=== PATIENT | female | born 1935 | race Caucasian/White ===

== ENCOUNTER 2024-04-05 20:27 | Inpatient (IN) | payer MEDICARE ==
[2024-04-05] MEDS ORDERED: Acetaminophen 650 MG Suppository PR PRN (23:53)
[2024-04-06] MEDS: Sodium Chloride 0.9% 1,000 ML IV SCH ×2 (01:06→20:36)
[2024-04-06] MEDS: traZODone HCl 150 MG TAB PO SCH ×2 (01:06→20:35)
[2024-04-06] MEDS: ALPRAZolam 0.25 MG TAB PO SCH ×2 (01:06→20:36)
[2024-04-06] MEDS: Morphine 2 MG/ML VIAL SLOW IVP SCH (01:11)
[2024-04-06] MEDS ORDERED: Melatonin 3 MG TAB PO PRN (01:17)
[2024-04-06] MEDS ORDERED: Morphine 2 MG/ML VIAL SLOW IVP PRN (01:20)
[2024-04-06] MEDS ORDERED: Glucagon 1 MG/ML KIT IM PRN (01:44)
[2024-04-06] MEDS ORDERED: Dextrose 50% Abboject 50 ML SYRINGE SLOW IVP PRN (01:44)
[2024-04-06] MEDS ORDERED: Dextrose 5% in Water 1,000 ML IV PRN (01:44)
[2024-04-06] MEDS ORDERED: Ondansetron ODT 4 MG TAB PO PRN (01:48)
[2024-04-06] MEDS: Ondansetron PF 4 MG/2 ML Vial IVP PRN (01:59)
[2024-04-06] MEDS: Pantoprazole 40 MG VIAL IVP SCH ×2 (03:47→09:36)
[2024-04-06 05:40] LABS: #Basophils Less than 0.03 10x3/uL (0.0-0.2); #Eosinophils Less than 0.03 10x3/uL (0.0-0.7); %Basophils 0.1 % (0.0-1.0); %Eosinophils 0.1 % (0.0-10.0); %Lymphocytes 4.6 % (21.0-51.0); %Neutrophils 86.7 % (42.0-75.0); Hematocrit 28.6 % (36.0-47.0); Hemoglobin 9.9 g/dL (12.0-16.0); Mean Corpuscular HGB CONC 34.6 g/dL (32.0-36.0); Mean Corpuscular Hemoglobin 34.1 pg (27.0-31.0); Mean Corpuscular Volume 98.6 fL (78.0-98.0); Mean Platelet Volume 10.6 fL (7.4-10.4); Platelet Count 189 10x3/uL (130-400); RBC Distribution Width 13.3 % (11.5-14.5)
[2024-04-06 05:58] LABS: Anion Gap 13 mmol/L (10-20); BUN (Urea Nitrogen) 39 mg/dL (9.8-20.1); Calc. Creatinine Clearance 28 mL/min (70-130); Calcium 8.6 mg/dL (7.8-10.44); Carbon Dioxide 26 mmol/L (23-31); Chloride 99 mmol/L (98-107); Estimated GFR 50; Glucose 127 mg/dL (83-110); Magnesium 1.5 mg/dL (1.6-2.6); Potassium 3.6 mmol/L (3.5-5.1); Sodium 134 mmol/L (136-145)
[2024-04-06] MEDS: metroNIDAZOLE 500 MG in Premix 1 BAG IVPB SCH (06:13)
[2024-04-06] MEDS ORDERED: Famotidine 20 MG TAB PO SCH (09:00)
[2024-04-06] MEDS: Allopurinol 300 MG TAB PO SCH (09:34)
[2024-04-06] MEDS: Multivit, Therapeutic 1 TAB PO SCH (09:34)
[2024-04-06] MEDS: Atorvastatin Calcium 10 MG TAB PO SCH (09:36)
[2024-04-06] MEDS: Magnesium 2 GM/50 ML(in water) 2 GM in Premix 1 BAG IVPB SCH (09:36)
[2024-04-06] MEDS: Sertraline 25 MG TAB PO SCH (09:36)
[2024-04-06] MEDS: Aspirin 81 mg Enteric Coated Tablet PO SCH (09:36)
[2024-04-06] MEDS: Acetaminophen 325 MG TAB PO PRN (09:42)
[2024-04-06 19:45] LABS: #Basophils 0.03 10x3/uL (0.0-0.2); %Basophils 0.2 % (0.0-1.0); %Eosinophils 0.3 % (0.0-10.0); %Lymphocytes 8.4 % (21.0-51.0); %Neutrophils 81.7 % (42.0-75.0); Hematocrit 25.4 % (36.0-47.0); Hemoglobin 8.5 g/dL (12.0-16.0); Mean Corpuscular HGB CONC 33.5 g/dL (32.0-36.0); Mean Corpuscular Volume 101.6 fL (78.0-98.0); Mean Platelet Volume 9.7 fL (7.4-10.4); Platelet Count 150 10x3/uL (130-400); RBC Distribution Width 13.4 % (11.5-14.5)
[2024-04-06] MEDS: cefTRIAXone\\ROCEPHIN 1 GM in Sodium Chloride 0.9% 100 ML IVPB SCH (20:34)
[2024-04-06] MEDS: Melatonin 3 MG TAB PO SCH (20:35)
[2024-04-07] MEDS: hydrALAZINE 10 MG TAB PO PRN (04:11)
[2024-04-07 04:49] LABS: #Basophils Less than 0.03 10x3/uL (0.0-0.2); %Basophils 0.2 % (0.0-1.0); %Eosinophils 0.9 % (0.0-10.0); %Lymphocytes 9.1 % (21.0-51.0); %Monocytes 9.6 % (0.0-10.0); %Neutrophils 79.4 % (42.0-75.0); Mean Corpuscular HGB CONC 33.3 g/dL (32.0-36.0); Mean Corpuscular Hemoglobin 33.8 pg (27.0-31.0); Mean Corpuscular Volume 101.5 fL (78.0-98.0); Mean Platelet Volume 10.6 fL (7.4-10.4); Platelet Count 153 10x3/uL (130-400); RBC Distribution Width 13.4 % (11.5-14.5); Red Blood Cell (RBC) Count 2.66 mill/uL (4.20-5.40)
[2024-04-07 06:03] LABS: Campy jejuni + coli by PCR Negative (Negative); STEC Shiga Toxin 1+2 Negative (Negative); Salmonella spp. by PCR Negative (Negative); Shigella spp + EIEC by PCR Negative (Negative)
[2024-04-07] MEDS: Diclofenac 1% 50 GM TOPICAL GEL TP SCH (13:10)
[2024-04-07] MEDS: cloNIDine 0.1 MG TAB PO PRN (13:10)
[2024-04-07 19:22] LABS: Anion Gap 11 mmol/L (10-20); BUN (Urea Nitrogen) 29 mg/dL (9.8-20.1); Calc. Creatinine Clearance 35 mL/min (70-130); Calcium 8.1 mg/dL (7.8-10.44); Carbon Dioxide 23 mmol/L (23-31); Chloride 105 mmol/L (98-107); Estimated GFR 66; Glucose 131 mg/dL (83-110); Magnesium 1.8 mg/dL (1.6-2.6); Potassium 3.6 mmol/L (3.5-5.1); Sodium 135 mmol/L (136-145)
[2024-04-08 04:59] LABS: #Basophils 0.03 10x3/uL (0.0-0.2); %Basophils 0.4 % (0.0-1.0); %Eosinophils 2.3 % (0.0-10.0); %Lymphocytes 11.1 % (21.0-51.0); %Monocytes 8.2 % (0.0-10.0); %Neutrophils 77.5 % (42.0-75.0); Hematocrit 26.1 % (36.0-47.0); Hemoglobin 8.6 g/dL (12.0-16.0); Mean Corpuscular Hemoglobin 33.9 pg (27.0-31.0); Mean Corpuscular Volume 102.8 fL (78.0-98.0); Mean Platelet Volume 10.8 fL (7.4-10.4); Platelet Count 156 10x3/uL (130-400); RBC Distribution Width 13.4 % (11.5-14.5); Red Blood Cell (RBC) Count 2.54 mill/uL (4.20-5.40)
[2024-04-08 05:09] LABS: Anion Gap 11 mmol/L (10-20); BUN (Urea Nitrogen) 25 mg/dL (9.8-20.1); Calc. Creatinine Clearance 36 mL/min (70-130); Carbon Dioxide 20 mmol/L (23-31); Chloride 109 mmol/L (98-107); Estimated GFR 68; Glucose 96 mg/dL (83-110); Magnesium 1.8 mg/dL (1.6-2.6); Potassium 3.5 mmol/L (3.5-5.1); Sodium 136 mmol/L (136-145)
[2024-04-08] MEDS: Spironolactone 25 MG TAB PO SCH (07:53)
[2024-04-08] MEDS: Lisinopril 20 MG TAB PO SCH (07:54)
[2024-04-08] MEDS: Lisinopril 5 MG TAB PO SCH (14:55)
[2024-04-08 16:06] VITALS: TEMP 98.7
[2024-04-08 17:07] VITALS: BP 182/76
[2024-04-09] MEDS ORDERED: Lisinopril 20 MG TAB PO SCH (09:00)
== END 2024-04-08 17:30 | disposition home or self-care (01) | DRG 378 ==
LOC: T4-A 23:07 → OBSVTOIN 04-06 01:34 → 2NO 04-06 20:20
PROVIDERS: ADMIT Internal Medicine; ATTEND Family Medicine
DX: K92.1 Melena (principal); N17.9 Acute kidney failure, unspecified; N39.0 Urinary tract infection, site not specified; K52.9 Noninfective gastroenteritis and colitis, unspecified; E11.9 Type 2 diabetes mellitus without complications; I10 Essential (primary) hypertension; Z66 Do not resuscitate; I25.10 Atherosclerotic heart disease of native coronary artery without angina pectoris; Z95.1 Presence of aortocoronary bypass graft; E78.5 Hyperlipidemia, unspecified; Z88.8 Allergy status to other drugs, medicaments and biological substances; Z90.710 Acquired absence of both cervix and uterus; Z98.890 Other specified postprocedural states; Z79.82 Long term (current) use of aspirin; Z79.899 Other long term (current) drug therapy
CPT/HCPCS: 36415; 36416; 76770; 80048; 83630; 83735; 85025; 87324; 87449; 87505; J0696; J2272; J2405; J2470; J3475; J7030